=== PATIENT | female | born 1985 | race Caucasian/White ===

== ENCOUNTER 2017-01-15 06:12 | Emergency (ER) | payer OTHER ==
[2017-01-15] MEDS ORDERED: SODIUM CHLORIDE 0.9% 1,000 ML IV STA (06:25)
[2017-01-15] MEDS ORDERED: LORazepam 2 MG/ML INJ IV STA (06:25)
--- NOTE | 2017-01-15 06:49 | ED ---
General Adult HPI - General Source: police, RN notes reviewed, old records reviewed Mode of arrival: wheelchair Limitations: no limitations <Pedrito Vyas - Last Filed: 01/15/17 06:54> <Pedrito Lieberman - Last Filed: 01/15/17 17:11> <Lisandro Wolfe - Last Filed: 01/15/17 18:14> - General Stated complaint: mental health Time Seen by Provider: 01/15/17 06:24 - History of Present Illness Initial comments: This is a 31-year-old female to the ER for altered mental status. Acting appropriately. Patient is unable to give any accurate information.. Patient is acting combative, and cooperative. Patient is brought in by PD for psychiatric evaluation. Patient has no prior records here. (Pedrito Vyas) - Related Data Home Medications Medication Instructions Recorded Confirmed Unable To Assess [Unable to Assess] 01/15/17 01/15/17 Allergies Allergy/AdvReac Type Severity Reaction Status Date / Time Penicillins Allergy Unknown Verified 01/15/17 06:52 Review of Systems ROS Other: All systems not noted in ROS Statement are negative. <Pedrito Vyas - Last Filed: 01/15/17 06:54> ROS Other: All systems not noted in ROS Statement are negative. <Pedrito Lieberman - Last Filed: 01/15/17 17:11> ROS Other: All systems not noted in ROS Statement are negative. <Lisandro Wolfe - Last Filed: 01/15/17 18:14> ROS Statement: Those systems with pertinent positive or pertinent negative responses have been documented in the HPI. Past Medical History Past Medical History: Unable to Obtain History of Any Multi-Drug Resistant Organisms: Unobtainable Past Surgical History: Unable to Obtain Past Psychological History: Unable to Obtain Smoking Status: Current every day smoker Past Alcohol Use History: Unable to Obtain Past Drug Use History: Unable to Obtain <Pedrito Vyas - Last Filed: 01/15/17 06:54> General Exam Limitations: altered mental status, physical limitation General appearance: alert, appears intoxicated, anxious, in distress Head exam: Present: atraumatic, normocephalic, normal inspection Eye exam: Present: normal appearance, PERRL, EOMI. Absent: scleral icterus, conjunctival injection, periorbital swelling ENT exam: Present: normal exam, mucous membranes moist Neck exam: Present: normal inspection. Absent: tenderness, meningismus, lymphadenopathy Respiratory exam: Present: normal lung sounds bilaterally. Absent: respiratory distress, wheezes, rales, rhonchi, stridor Cardiovascular Exam: Present: normal rhythm, tachycardia, normal heart sounds. Absent: systolic murmur, diastolic murmur, rubs, gallop, clicks GI/Abdominal exam: Present: soft, normal bowel sounds. Absent: distended, tenderness, guarding, rebound, rigid Extremities exam: Present: normal inspection, full ROM, normal capillary refill. Absent: tenderness, pedal edema, joint swelling, calf tenderness Back exam: Present: normal inspection Neurological exam: Present: alert, oriented X3, CN II-XII intact Psychiatric exam: Present: normal affect, normal mood Skin exam: Present: warm, dry, intact, normal color. Absent: rash <Pedrito Vyas - Last Filed: 01/15/17 06:54> Course <Pedrito Vyas - Last Filed: 01/15/17 06:54> <Pedrito Lieberman - Last Filed: 01/15/17 17:11> <Lisandro Wolfe - Last Filed: 01/15/17 18:14> Vital Signs 01/15/17 01/15/17 01/15/17 06:44 13:38 14:49 Temperature 98 F Pulse Rate 125 H 93 102 H Respiratory 22 17 18 Rate Blood Pressure 150/76 105/65 130/86 O2 Sat by Pulse 98 95 96 Oximetry - Reevaluation(s) Reevaluation #1: 01/15/17 18:13 The patient was endorsed to me at our shift change at 5 PM pending EPS evaluation the patient currently is not suicidal or homicidal. She does desire to go stay with a friend who is a volunteer to take her home. Patient will be discharged we did discuss this and she is in agreement. (Lisandro Wolfe) Procedures - Restraint - Face to Face Restraint Occurrence 1 Patient's Immediate Situation: Endangers self safety, Endangers others' safety, Endangers staff safety, Violent behavior Patient's Reaction to the Intervention: Uncooperative, Angry, Belligerent, Bizarre, Aggressive Patient's Medical & Behavioral Condition: Agitated, Flight of ideas Need to Continue or Terminate Restraint or Seclusion: Continue Face to Face Eval of Restraint Date: 01/15/17 Face to Face Eval of Restraint Time: 06:48 <Pedrito Vyas - Last Filed: 01/15/17 06:54> - Restraint - Face to Face Restraint Occurrence 2 Patient's Immediate Situation: Endangers self safety, Endangers others' safety Patient's Reaction to the Intervention: Uncooperative, Belligerent, Combative, Restless Patient's Medical & Behavioral Condition: Awake, Alert, Drowsy Need to Continue or Terminate Restraint or Seclusion: Continue Face to Face Eval of Restraint Date: 01/15/17 Face to Face Eval of Restraint Time: 08:40 <Pedrito Lieberman - Last Filed: 01/15/17 17:11> Medical Decision Making <Pedrito Vyas - Last Filed: 01/15/17 06:54> - Lab Data Result diagrams: 01/15/17 08:14 01/15/17 06:38 <Pedrito Lieberman - Last Filed: 01/15/17 17:11> - Lab Data Result diagrams: 01/15/17 08:14 01/15/17 06:38 <Lisandro Wolfe - Last Filed: 01/15/17 18:14> - Medical Decision Making Dr. Wolfe will be take over the care of this patient at 5 PM (Pedrito Lieberman) - Lab Data Lab Results 01/15/17 01/15/17 01/15/17 Range/Units 06:38 06:38 08:14 WBC 5.3 (3.8-10.6) k/uL RBC 4.67 (3.80-5.40) m/uL Hgb 15.0 (11.4-16.0) gm/dL Hct 46.8 H (34.0-46.0) % MCV 100.3 H (80.0-100.0) fL MCH 32.1 (25.0-35.0) pg MCHC 32.0 (31.0-37.0) g/dL RDW 13.1 (11.5-15.5) % Plt Count 344 (150-450) k/uL Neutrophils % 66 % Lymphocytes % 23 % Monocytes % 5 % Eosinophils % 3 % Basophils % 1 % Neutrophils # 3.5 (1.3-7.7) k/uL Lymphocytes # 1.2 (1.0-4.8) k/uL Monocytes # 0.3 (0-1.0) k/uL Eosinophils # 0.1 (0-0.7) k/uL Basophils # 0.1 (0-0.2) k/uL Sodium 147 H (137-145) mmol/L Potassium 4.4 (3.5-5.1) mmol/L Chloride 115 H (98-107) mmol/L Carbon Dioxide 12 L (22-30) mmol/L Anion Gap 20 mmol/L BUN 13 (7-17) mg/dL Creatinine 0.85 (0.52-1.04) mg/dL Est GFR (MDRD) Af Amer >60 (>60 ml/min/1.73 sqM) Est GFR (MDRD) Non-Af >60 (>60 ml/min/1.73 sqM) Glucose 115 H (74-99) mg/dL Calcium 10.0 (8.4-10.2) mg/dL Total Bilirubin 0.4 (0.2-1.3) mg/dL AST 37 H (14-36) U/L ALT 21 (9-52) U/L Alkaline Phosphatase 132 H (38-126) U/L Total Protein 8.3 H (6.3-8.2) g/dL Albumin 4.7 (3.5-5.0) g/dL Urine Color Urine Appearance (Clear) Urine pH (5.0-8.0) Ur Specific [place] (1.001-1.035) Urine Protein (Negative) Urine Glucose (UA) (Negative) Urine Ketones (Negative) Urine Blood (Negative) Urine Nitrite (Negative) Urine Bilirubin (Negative) Urine Urobilinogen (<2.0) mg/dL Ur Leukocyte Esterase (Negative) Urine RBC (0-5) /hpf Ur Squamous Epith Cells (0-4) /hpf Urine Mucus (None) /hpf Urine HCG, Qual (Not Detectd) Salicylates <1.0 mg/dL Urine Opiates Screen (NotDetected) Ur Oxycodone Screen (NotDetected) Urine Methadone Screen (NotDetected) Ur Propoxyphene Screen (NotDetected) Acetaminophen <10.0 ug/mL Ur Barbiturates Screen (NotDetected) U Tricyclic Antidepress (NotDetected) Ur Phencyclidine Scrn (NotDetected) Ur Amphetamines Screen (NotDetected) U Methamphetamines Scrn (NotDetected) U Benzodiazepines Scrn (NotDetected) Urine Cocaine Screen (NotDetected) U Marijuana (THC) Screen (NotDetected) Serum Alcohol 268 mg/dL 01/15/17 01/15/17 Range/Units 08:14 08:14 WBC (3.8-10.6) k/uL RBC (3.80-5.40) m/uL Hgb (11.4-16.0) gm/dL Hct (34.0-46.0) % MCV (80.0-100.0) fL MCH (25.0-35.0) pg MCHC (31.0-37.0) g/dL RDW (11.5-15.5) % Plt Count (150-450) k/uL Neutrophils % % Lymphocytes % % Monocytes % % Eosinophils % % Basophils % % Neutrophils # (1.3-7.7) k/uL Lymphocytes # (1.0-4.8) k/uL Monocytes # (0-1.0) k/uL Eosinophils # (0-0.7) k/uL Basophils # (0-0.2) k/uL Sodium (137-145) mmol/L Potassium (3.5-5.1) mmol/L Chloride (98-107) mmol/L Carbon Dioxide (22-30) mmol/L Anion Gap mmol/L BUN (7-17) mg/dL Creatinine (0.52-1.04) mg/dL Est GFR (MDRD) Af Amer (>60 ml/min/1.73 sqM) Est GFR (MDRD) Non-Af (>60 ml/min/1.73 sqM) Glucose (74-99) mg/dL Calcium (8.4-10.2) mg/dL Total Bilirubin (0.2-1.3) mg/dL AST (14-36) U/L ALT (9-52) U/L Alkaline Phosphatase (38-126) U/L Total Protein (6.3-8.2) g/dL Albumin (3.5-5.0) g/dL Urine Color Colorless Urine Appearance Clear (Clear) Urine pH 5.5 (5.0-8.0) Ur Specific [place] 1.002 (1.001-1.035) Urine Protein Negative (Negative) Urine Glucose (UA) Negative (Negative) Urine Ketones Negative (Negative) Urine Blood Trace H (Negative) Urine Nitrite Negative (Negative) Urine Bilirubin Negative (Negative) Urine Urobilinogen <2.0 (<2.0) mg/dL Ur Leukocyte Esterase Negative (Negative) Urine RBC <1 (0-5) /hpf Ur Squamous Epith Cells <1 (0-4) /hpf Urine Mucus Rare H (None) /hpf Urine HCG, Qual Not Detected (Not Detectd) Salicylates mg/dL Urine Opiates Screen Not Detected (NotDetected) Ur Oxycodone Screen Not Detected (NotDetected) Urine Methadone Screen Not Detected (NotDetected) Ur Propoxyphene Screen Not Detected (NotDetected) Acetaminophen ug/mL Ur Barbiturates Screen Not Detected (NotDetected) U Tricyclic Antidepress Not Detected (NotDetected) Ur Phencyclidine Scrn Not Detected (NotDetected) Ur Amphetamines Screen Not Detected (NotDetected) U Methamphetamines Scrn Not Detected (NotDetected) U Benzodiazepines Scrn Not Detected (NotDetected) Urine Cocaine Screen Detected H (NotDetected) U Marijuana (THC) Screen Not Detected (NotDetected) Serum Alcohol mg/dL Disposition <Pedrito Vyas - Last Filed: 01/15/17 06:54> <Pedrito Lieberman - Last Filed: 01/15/17 17:11> <Lisandro Wolfe - Last Filed: 01/15/17 18:14> Clinical Impression: Adjustment reaction, Alcohol intoxication Disposition: HOME SELF-CARE Condition: Good Instructions: Alcohol Intoxication (ED), Abuse of Alcohol (ED), Mood Disorders (ED), Anxiety (ED) Referrals: None,Stated [Primary Care Provider] - 1-2 days
[2017-01-15 06:59] LABS: Acetaminophen <10.0 ug/mL
[2017-01-15] MEDS ORDERED: LORazepam 2 MG/ML INJ IM STA (07:01)
[2017-01-15 07:13] LABS: Alcohol 268 mg/dL
[2017-01-15 07:46] LABS: ALT 21 U/L (9-52); AST 37 U/L (14-36); Alkaline Phosphatase 132 U/L (38-126); Blood Urea Nitrogen 13 mg/dL (7-17); Carbon Dioxide 12 mmol/L (22-30); Glucose 115 mg/dL (74-99); Non-African American GFR(MDRD) >60 (>60 ml/min/1.73 sqM); Potassium 4.4 mmol/L (3.5-5.1); Salicylate <1.0 mg/dL; Sodium 147 mmol/L (137-145); Total Bilirubin 0.4 mg/dL (0.2-1.3); Total Protein 8.3 g/dL (6.3-8.2)
[2017-01-15 07:50] LABS: Anion Gap 20 mmol/L; Chloride 115 mmol/L (98-107)
[2017-01-15 08:29] LABS: Basophils # (A) 0.1 k/uL (0-0.2); Basophils % (A) 1 %; CH 32.5; CHCM 32.6; Eosinophils # (A) 0.1 k/uL (0-0.7); Eosinophils % (A) 3 %; HCT 46.8 % (34.0-46.0); HDW 2.08; Luc # (Auto) 0.15; Luc % (Auto) 3; Lymphocytes # (A) 1.2 k/uL (1.0-4.8); Lymphocytes % (A) 23 %; MCH 32.1 pg (25.0-35.0); MCV 100.3 fL (80.0-100.0); Mean Platelet Volume 6.6; Monocytes # (A) 0.3 k/uL (0-1.0); Monocytes % (A) 5 %; Neutrophils # (A) 3.5 k/uL (1.3-7.7); Neutrophils % (A) 66 %; RBC 4.67 m/uL (3.80-5.40); RDW 13.1 % (11.5-15.5); WBC 5.3 k/uL (3.8-10.6); WBC (Perox) 5.28
[2017-01-15 09:25] LABS: Appearance,Urine Clear (Clear); Bilirubin,Urine Negative (Negative); Glucose,Urine (UA) Negative (Negative); Ketones,Urine Negative (Negative); Leukocyte Esterase,Urine Negative (Negative); Mucus,Urine Rare /hpf; Nitrite,Urine Negative (Negative); PH, Urine 5.5 (5.0-8.0); Particle Count 819; Protein,Urine Negative (Negative); RBC,Urine <1 /hpf (0-5); Specific Gravity,Urine 1.002 (1.001-1.035); Squamous Epithelial Cell,Urine <1 /hpf (0-4); UA Billing (MACRO vs. MICRO) MICRO; Urobilinogen,Urine <2.0 mg/dL (<2.0)
[2017-01-15] MEDS ORDERED: ZIPRASIDONE 20 MG VIAL IM STA (10:35)
[2017-01-15 14:52] VITALS: RESP 18
[2017-01-15 19:01] VITALS: BP 142/92; PULSE 94; TEMP 97.8
== END 2017-01-15 19:01 | disposition home or self-care (01) ==
LOC: EC 06:12
DX: F43.20 Adjustment disorder, unspecified (principal); F10.229 Alcohol dependence with intoxication, unspecified; Y90.8 Blood alcohol level of 240 mg/100 ml or more; F17.200 Nicotine dependence, unspecified, uncomplicated; Z78.1 Physical restraint status; Z88.0 Allergy status to penicillin
CPT/HCPCS: 99285; 96374; 96372 ×2; 82075; 36415; 80053; 85025; 81001; 81025; 80306; 83520 ×2; 80320; J2060; J3486